=== PATIENT | male | born 1945 | race Caucasian/White ===

== ENCOUNTER 2022-06-14 12:05 | Inpatient (IN) | payer MEDICARE, OTHER ==
[2022-06-14] MEDS ORDERED: Nitroglycerin 0.4 MG Tab.SL SL PRN (14:48)
[2022-06-14] MEDS ORDERED: Albuterol HFA 18 Gm Inhaler INH PRN (14:48)
[2022-06-14] MEDS ORDERED: Hypromellose 0.3% Ophth Soln 15 ML Bottle EYEBOTH PRN (14:48)
[2022-06-14] MEDS: Warfarin 5 MG Tab PO SCH (20:31)
[2022-06-14] MEDS: Metoprolol Tartrate 50 MG Tab PO SCH (20:31)
[2022-06-15] MEDS: oxyCODONE 5 MG Tab PO PRN ×2 (02:14→22:53)
[2022-06-15] MEDS: Levothyroxine 25 MCG Tab PO SCH (06:25)
[2022-06-15 07:00] LABS: ANION GAP 12.2 mmol/L (5-15)
[2022-06-15] MEDS: Calcium Carbonate/Vitamin D3 1250 MG-5 MCG Tab PO SCH (08:28)
[2022-06-15] MEDS: Fish Oil/Omega-3 Fatty Acids 1 Gm Cap PO SCH (08:28)
[2022-06-15] MEDS: Furosemide 40 MG Tab PO SCH (08:28)
[2022-06-15] MEDS: Loratadine 10 MG Tab PO SCH (08:28)
[2022-06-15] MEDS: Cyanocobalamin (Vitamin B12) 1,000 MCG Tab PO SCH (08:28)
[2022-06-15] MEDS: Psyllium 0.52 GM Cap PO SCH (08:29)
[2022-06-15] MEDS: Cholecalciferol (Vitamin D3) 5,000 UNIT Tab PO SCH (08:29)
[2022-06-15] MEDS: Multivitamins with Iron/Calcium/Folic Acid/Minerals Tab PO SCH (08:29)
[2022-06-15] MEDS: atorvaSTATin 40 MG Tab PO SCH (08:29)
[2022-06-15] MEDS: Finasteride 5 MG Tab PO SCH (08:30)
[2022-06-15] MEDS: Aspirin 81 MG Tab.EC PO SCH (08:30)
[2022-06-15] MEDS: Tamsulosin 0.4 MG Cap.ER PO SCH (08:30)
[2022-06-15] MEDS: Metoprolol Tartrate 50 MG Tab PO SCH ×2 (08:31→20:30)
[2022-06-15] MEDS: Docusate Sodium 100 MG Cap PO SCH (08:31)
[2022-06-15] MEDS: Enoxaparin 40 MG/0.4 ML Syringe SUBCUT SCH ×2 (08:42→12:00)
[2022-06-15] MEDS ORDERED: Omeprazole 20 MG Cap.CR PO SCH (09:00)
[2022-06-15] MEDS ORDERED: 50% Dextrose in Water 50 ML Syringe IVPUSH PRN (12:02)
[2022-06-15] MEDS ORDERED: Glucagon,Human Recombinant 1 MG Vial IM PRN (12:02)
[2022-06-15] MEDS: Insulin Glarg,Human.Rec.Analog 100 Unit/ML SUBCUT SCH (12:41)
[2022-06-15] MEDS: Warfarin 5 MG Tab PO SCH (20:30)
[2022-06-15] MEDS: Acetaminophen 325 MG Tab PO PRN (20:30)
[2022-06-16] MEDS: oxyCODONE 5 MG Tab PO PRN ×2 (03:39→23:38)
[2022-06-16] MEDS: Omeprazole 20 MG Cap.CR PO SCH (06:24)
[2022-06-16] MEDS: Levothyroxine 25 MCG Tab PO SCH (06:24)
[2022-06-16] MEDS: Enoxaparin 40 MG/0.4 ML Syringe SUBCUT SCH (08:07)
[2022-06-16] MEDS: Acetaminophen 325 MG Tab PO PRN ×2 (08:08→12:53)
[2022-06-16] MEDS: Docusate Sodium 100 MG Cap PO SCH (08:09)
[2022-06-16] MEDS: Furosemide 40 MG Tab PO SCH (08:09)
[2022-06-16] MEDS: Fish Oil/Omega-3 Fatty Acids 1 Gm Cap PO SCH (08:09)
[2022-06-16] MEDS: Psyllium 0.52 GM Cap PO SCH (08:09)
[2022-06-16] MEDS: Cyanocobalamin (Vitamin B12) 1,000 MCG Tab PO SCH (08:10)
[2022-06-16] MEDS: Cholecalciferol (Vitamin D3) 5,000 UNIT Tab PO SCH (08:10)
[2022-06-16] MEDS: Loratadine 10 MG Tab PO SCH (08:11)
[2022-06-16] MEDS: Metoprolol Tartrate 50 MG Tab PO SCH ×2 (08:12→21:13)
[2022-06-16] MEDS: Tamsulosin 0.4 MG Cap.ER PO SCH (08:13)
[2022-06-16] MEDS: atorvaSTATin 40 MG Tab PO SCH (08:13)
[2022-06-16] MEDS: Finasteride 5 MG Tab PO SCH (08:13)
[2022-06-16] MEDS: Multivitamins with Iron/Calcium/Folic Acid/Minerals Tab PO SCH (08:13)
[2022-06-16] MEDS: Calcium Carbonate/Vitamin D3 1250 MG-5 MCG Tab PO SCH (08:13)
[2022-06-16] MEDS: Aspirin 81 MG Tab.EC PO SCH (08:14)
[2022-06-16] MEDS: Insulin Glarg,Human.Rec.Analog 100 Unit/ML SUBCUT SCH (08:17)
[2022-06-16] MEDS: Warfarin 5 MG Tab PO SCH (21:12)
[2022-06-17] MEDS: Levothyroxine 25 MCG Tab PO SCH (06:15)
[2022-06-17] MEDS: Omeprazole 20 MG Cap.CR PO SCH (06:15)
[2022-06-17] MEDS: Acetaminophen 325 MG Tab PO PRN (06:15)
[2022-06-17] MEDS: Enoxaparin 40 MG/0.4 ML Syringe SUBCUT SCH (09:27)
[2022-06-17] MEDS: Aspirin 81 MG Tab.EC PO SCH (09:28)
[2022-06-17] MEDS: Fish Oil/Omega-3 Fatty Acids 1 Gm Cap PO SCH (09:28)
[2022-06-17] MEDS: Tamsulosin 0.4 MG Cap.ER PO SCH (09:28)
[2022-06-17] MEDS: Cholecalciferol (Vitamin D3) 5,000 UNIT Tab PO SCH (09:29)
[2022-06-17] MEDS: Docusate Sodium 100 MG Cap PO SCH (09:29)
[2022-06-17] MEDS: Loratadine 10 MG Tab PO SCH (09:29)
[2022-06-17] MEDS: Furosemide 40 MG Tab PO SCH (09:30)
[2022-06-17] MEDS: Psyllium 0.52 GM Cap PO SCH (09:30)
[2022-06-17] MEDS: Finasteride 5 MG Tab PO SCH (09:30)
[2022-06-17] MEDS: Metoprolol Tartrate 50 MG Tab PO SCH ×2 (09:31→20:12)
[2022-06-17] MEDS: Calcium Carbonate/Vitamin D3 1250 MG-5 MCG Tab PO SCH (09:31)
[2022-06-17] MEDS: Multivitamins with Iron/Calcium/Folic Acid/Minerals Tab PO SCH (09:31)
[2022-06-17] MEDS: Cyanocobalamin (Vitamin B12) 1,000 MCG Tab PO SCH (09:32)
[2022-06-17] MEDS: atorvaSTATin 40 MG Tab PO SCH (09:32)
[2022-06-17] MEDS: Insulin Glarg,Human.Rec.Analog 100 Unit/ML SUBCUT SCH (09:34)
[2022-06-17] MEDS: Warfarin 5 MG Tab PO SCH (20:13)
[2022-06-17] MEDS: oxyCODONE 5 MG Tab PO PRN (20:13)
[2022-06-18] MEDS: Acetaminophen 325 MG Tab PO PRN ×2 (03:55→23:37)
[2022-06-18] MEDS: Levothyroxine 25 MCG Tab PO SCH (06:17)
[2022-06-18] MEDS: Omeprazole 20 MG Cap.CR PO SCH (06:17)
[2022-06-18] MEDS: Calcium Carbonate/Vitamin D3 1250 MG-5 MCG Tab PO SCH (10:12)
[2022-06-18] MEDS: Cyanocobalamin (Vitamin B12) 1,000 MCG Tab PO SCH (10:12)
[2022-06-18] MEDS: Tamsulosin 0.4 MG Cap.ER PO SCH (10:12)
[2022-06-18] MEDS: Psyllium 0.52 GM Cap PO SCH (10:12)
[2022-06-18] MEDS: Loratadine 10 MG Tab PO SCH (10:12)
[2022-06-18] MEDS: Docusate Sodium 100 MG Cap PO SCH (10:12)
[2022-06-18] MEDS: Cholecalciferol (Vitamin D3) 5,000 UNIT Tab PO SCH (10:12)
[2022-06-18] MEDS: Multivitamins with Iron/Calcium/Folic Acid/Minerals Tab PO SCH (10:12)
[2022-06-18] MEDS: Fish Oil/Omega-3 Fatty Acids 1 Gm Cap PO SCH (10:12)
[2022-06-18] MEDS: Finasteride 5 MG Tab PO SCH (10:12)
[2022-06-18] MEDS: Aspirin 81 MG Tab.EC PO SCH (10:13)
[2022-06-18] MEDS: atorvaSTATin 40 MG Tab PO SCH (10:13)
[2022-06-18] MEDS: Furosemide 40 MG Tab PO SCH (10:13)
[2022-06-18] MEDS: Metoprolol Tartrate 50 MG Tab PO SCH ×2 (10:16→21:20)
[2022-06-18] MEDS: Insulin Glarg,Human.Rec.Analog 100 Unit/ML SUBCUT SCH (10:17)
[2022-06-18] MEDS: Enoxaparin 40 MG/0.4 ML Syringe SUBCUT SCH (10:19)
[2022-06-18] MEDS: Warfarin 5 MG Tab PO SCH (21:20)
[2022-06-19] MEDS: oxyCODONE 5 MG Tab PO PRN (02:41)
[2022-06-19] MEDS: Omeprazole 20 MG Cap.CR PO SCH (06:16)
[2022-06-19] MEDS: Levothyroxine 25 MCG Tab PO SCH (06:16)
[2022-06-19] MEDS: Enoxaparin 40 MG/0.4 ML Syringe SUBCUT SCH (10:00)
[2022-06-19] MEDS: Furosemide 40 MG Tab PO SCH (10:01)
[2022-06-19] MEDS: Cyanocobalamin (Vitamin B12) 1,000 MCG Tab PO SCH (10:01)
[2022-06-19] MEDS: atorvaSTATin 40 MG Tab PO SCH (10:01)
[2022-06-19] MEDS: Fish Oil/Omega-3 Fatty Acids 1 Gm Cap PO SCH (10:02)
[2022-06-19] MEDS: Psyllium 0.52 GM Cap PO SCH (10:03)
[2022-06-19] MEDS: Finasteride 5 MG Tab PO SCH (10:04)
[2022-06-19] MEDS: Docusate Sodium 100 MG Cap PO SCH (10:04)
[2022-06-19] MEDS: Tamsulosin 0.4 MG Cap.ER PO SCH (10:04)
[2022-06-19] MEDS: Loratadine 10 MG Tab PO SCH (10:04)
[2022-06-19] MEDS: Cholecalciferol (Vitamin D3) 5,000 UNIT Tab PO SCH (10:05)
[2022-06-19] MEDS: Calcium Carbonate/Vitamin D3 1250 MG-5 MCG Tab PO SCH (10:05)
[2022-06-19] MEDS: Multivitamins with Iron/Calcium/Folic Acid/Minerals Tab PO SCH (10:05)
[2022-06-19] MEDS: Metoprolol Tartrate 50 MG Tab PO SCH ×2 (10:05→21:00)
[2022-06-19] MEDS: Aspirin 81 MG Tab.EC PO SCH (10:06)
[2022-06-19] MEDS: Insulin Glarg,Human.Rec.Analog 100 Unit/ML SUBCUT SCH (10:51)
[2022-06-19] MEDS: glipiZIDE 5 MG Tab PO SCH (12:14)
[2022-06-19] MEDS: Warfarin 5 MG Tab PO SCH (21:00)
[2022-06-19] MEDS: Acetaminophen 325 MG Tab PO PRN (21:10)
[2022-06-20] MEDS: Acetaminophen 325 MG Tab PO PRN (03:32)
[2022-06-20] MEDS: Omeprazole 20 MG Cap.CR PO SCH (06:22)
[2022-06-20] MEDS: Levothyroxine 25 MCG Tab PO SCH (06:22)
[2022-06-20] MEDS: Tamsulosin 0.4 MG Cap.ER PO SCH (09:10)
[2022-06-20] MEDS: Fish Oil/Omega-3 Fatty Acids 1 Gm Cap PO SCH (09:11)
[2022-06-20] MEDS: Metoprolol Tartrate 50 MG Tab PO SCH ×2 (09:11→20:09)
[2022-06-20] MEDS: Docusate Sodium 100 MG Cap PO SCH (09:11)
[2022-06-20] MEDS: Multivitamins with Iron/Calcium/Folic Acid/Minerals Tab PO SCH (09:11)
[2022-06-20] MEDS: Psyllium 0.52 GM Cap PO SCH (09:11)
[2022-06-20] MEDS: Cholecalciferol (Vitamin D3) 5,000 UNIT Tab PO SCH (09:11)
[2022-06-20] MEDS: Cyanocobalamin (Vitamin B12) 1,000 MCG Tab PO SCH (09:11)
[2022-06-20] MEDS: Calcium Carbonate/Vitamin D3 1250 MG-5 MCG Tab PO SCH (09:12)
[2022-06-20] MEDS: Loratadine 10 MG Tab PO SCH (09:12)
[2022-06-20] MEDS: Aspirin 81 MG Tab.EC PO SCH (09:12)
[2022-06-20] MEDS: atorvaSTATin 40 MG Tab PO SCH (09:12)
[2022-06-20] MEDS: Enoxaparin 40 MG/0.4 ML Syringe SUBCUT SCH (09:12)
[2022-06-20] MEDS: Finasteride 5 MG Tab PO SCH (09:12)
[2022-06-20] MEDS: Furosemide 40 MG Tab PO SCH (09:12)
[2022-06-20] MEDS: Insulin Glarg,Human.Rec.Analog 100 Unit/ML SUBCUT SCH (09:13)
[2022-06-20] MEDS: glipiZIDE 5 MG Tab PO SCH (09:21)
[2022-06-20] MEDS: Terbinafine 1% Crm 30 GM Tube TOP SCH ×2 (09:22→22:15)
[2022-06-20] MEDS: Warfarin 5 MG Tab PO SCH (20:08)
[2022-06-20] MEDS: Melatonin 3 MG Tab PO SCH (22:15)
[2022-06-21] MEDS: Acetaminophen 325 MG Tab PO PRN ×3 (02:14→22:57)
[2022-06-21] MEDS: Omeprazole 20 MG Cap.CR PO SCH (06:56)
[2022-06-21] MEDS: Levothyroxine 25 MCG Tab PO SCH (06:57)
[2022-06-21] MEDS: Furosemide 40 MG Tab PO SCH (09:05)
[2022-06-21] MEDS: Finasteride 5 MG Tab PO SCH (09:05)
[2022-06-21] MEDS: Psyllium 0.52 GM Cap PO SCH (09:05)
[2022-06-21] MEDS: Enoxaparin 40 MG/0.4 ML Syringe SUBCUT SCH (09:05)
[2022-06-21] MEDS: Tamsulosin 0.4 MG Cap.ER PO SCH (09:05)
[2022-06-21] MEDS: atorvaSTATin 40 MG Tab PO SCH (09:06)
[2022-06-21] MEDS: glipiZIDE 5 MG Tab PO SCH ×2 (09:06→18:05)
[2022-06-21] MEDS: Fish Oil/Omega-3 Fatty Acids 1 Gm Cap PO SCH (09:06)
[2022-06-21] MEDS: Calcium Carbonate/Vitamin D3 1250 MG-5 MCG Tab PO SCH (09:07)
[2022-06-21] MEDS: Aspirin 81 MG Tab.EC PO SCH (09:07)
[2022-06-21] MEDS: Cholecalciferol (Vitamin D3) 5,000 UNIT Tab PO SCH (09:07)
[2022-06-21] MEDS: Cyanocobalamin (Vitamin B12) 1,000 MCG Tab PO SCH (09:07)
[2022-06-21] MEDS: Insulin Glarg,Human.Rec.Analog 100 Unit/ML SUBCUT SCH (09:08)
[2022-06-21] MEDS: Multivitamins with Iron/Calcium/Folic Acid/Minerals Tab PO SCH (09:08)
[2022-06-21] MEDS: Lisinopril 5 MG Tab PO SCH (09:08)
[2022-06-21] MEDS: Docusate Sodium 100 MG Cap PO SCH (09:08)
[2022-06-21] MEDS: Loratadine 10 MG Tab PO SCH (09:08)
[2022-06-21] MEDS: Terbinafine 1% Crm 30 GM Tube TOP SCH ×2 (09:13→22:00)
[2022-06-21] MEDS: Metoprolol Tartrate 50 MG Tab PO SCH ×2 (09:21→21:30)
[2022-06-21] MEDS: Melatonin 3 MG Tab PO SCH (21:36)
[2022-06-21] MEDS: Warfarin 5 MG Tab PO SCH (22:00)
[2022-06-22] MEDS: Levothyroxine 25 MCG Tab PO SCH (06:01)
[2022-06-22] MEDS: Omeprazole 20 MG Cap.CR PO SCH (06:01)
[2022-06-22] MEDS: Calcium Carbonate/Vitamin D3 1250 MG-5 MCG Tab PO SCH (08:07)
[2022-06-22] MEDS: Multivitamins with Iron/Calcium/Folic Acid/Minerals Tab PO SCH (08:08)
[2022-06-22] MEDS: Psyllium 0.52 GM Cap PO SCH (08:08)
[2022-06-22] MEDS: Tamsulosin 0.4 MG Cap.ER PO SCH (08:08)
[2022-06-22] MEDS: Fish Oil/Omega-3 Fatty Acids 1 Gm Cap PO SCH (08:08)
[2022-06-22] MEDS: Lisinopril 5 MG Tab PO SCH (08:09)
[2022-06-22] MEDS: glipiZIDE 5 MG Tab PO SCH ×2 (08:09→18:16)
[2022-06-22] MEDS: atorvaSTATin 40 MG Tab PO SCH (08:09)
[2022-06-22] MEDS: Finasteride 5 MG Tab PO SCH (08:10)
[2022-06-22] MEDS: Aspirin 81 MG Tab.EC PO SCH (08:10)
[2022-06-22] MEDS: Loratadine 10 MG Tab PO SCH (08:11)
[2022-06-22] MEDS: Docusate Sodium 100 MG Cap PO SCH (08:11)
[2022-06-22] MEDS: Furosemide 40 MG Tab PO SCH (08:11)
[2022-06-22] MEDS: Metoprolol Tartrate 50 MG Tab PO SCH ×2 (08:11→20:58)
[2022-06-22] MEDS: Cyanocobalamin (Vitamin B12) 1,000 MCG Tab PO SCH (08:11)
[2022-06-22] MEDS: Cholecalciferol (Vitamin D3) 5,000 UNIT Tab PO SCH (08:11)
[2022-06-22] MEDS: Terbinafine 1% Crm 30 GM Tube TOP SCH ×2 (08:12→21:02)
[2022-06-22] MEDS: Enoxaparin 40 MG/0.4 ML Syringe SUBCUT SCH (08:12)
[2022-06-22] MEDS: Insulin Glarg,Human.Rec.Analog 100 Unit/ML SUBCUT SCH (08:13)
[2022-06-22] MEDS: Warfarin 5 MG Tab PO SCH (20:57)
[2022-06-22] MEDS: Melatonin 3 MG Tab PO SCH (20:57)
[2022-06-23] MEDS: Acetaminophen 325 MG Tab PO PRN (00:51)
[2022-06-23] MEDS: Omeprazole 20 MG Cap.CR PO SCH (06:31)
[2022-06-23] MEDS: Levothyroxine 25 MCG Tab PO SCH (06:31)
[2022-06-23] MEDS: Multivitamins with Iron/Calcium/Folic Acid/Minerals Tab PO SCH (08:41)
[2022-06-23] MEDS: Aspirin 81 MG Tab.EC PO SCH (08:42)
[2022-06-23] MEDS: Psyllium 0.52 GM Cap PO SCH (08:42)
[2022-06-23] MEDS: Cyanocobalamin (Vitamin B12) 1,000 MCG Tab PO SCH (08:42)
[2022-06-23] MEDS: Finasteride 5 MG Tab PO SCH (08:42)
[2022-06-23] MEDS: Metoprolol Tartrate 50 MG Tab PO SCH ×2 (08:43→20:45)
[2022-06-23] MEDS: Loratadine 10 MG Tab PO SCH (08:43)
[2022-06-23] MEDS: Tamsulosin 0.4 MG Cap.ER PO SCH (08:45)
[2022-06-23] MEDS: Lisinopril 5 MG Tab PO SCH (08:46)
[2022-06-23] MEDS: Fish Oil/Omega-3 Fatty Acids 1 Gm Cap PO SCH (08:46)
[2022-06-23] MEDS: glipiZIDE 5 MG Tab PO SCH ×2 (08:47→17:31)
[2022-06-23] MEDS: atorvaSTATin 40 MG Tab PO SCH (08:47)
[2022-06-23] MEDS: Docusate Sodium 100 MG Cap PO SCH (08:47)
[2022-06-23] MEDS: Insulin Glarg,Human.Rec.Analog 100 Unit/ML SUBCUT SCH (08:48)
[2022-06-23] MEDS: Furosemide 40 MG Tab PO SCH (08:48)
[2022-06-23] MEDS: Cholecalciferol (Vitamin D3) 5,000 UNIT Tab PO SCH (08:48)
[2022-06-23] MEDS: Terbinafine 1% Crm 30 GM Tube TOP SCH ×2 (08:49→20:53)
[2022-06-23] MEDS: Calcium Carbonate/Vitamin D3 1250 MG-5 MCG Tab PO SCH (08:55)
[2022-06-23] MEDS: Melatonin 3 MG Tab PO SCH (20:45)
[2022-06-23] MEDS: Warfarin 2.5 MG Tab PO SCH (20:49)
[2022-06-24] MEDS: Omeprazole 20 MG Cap.CR PO SCH (06:35)
[2022-06-24] MEDS: Levothyroxine 25 MCG Tab PO SCH (06:35)
[2022-06-24] MEDS: Calcium Carbonate/Vitamin D3 1250 MG-5 MCG Tab PO SCH (08:50)
[2022-06-24] MEDS: Cyanocobalamin (Vitamin B12) 1,000 MCG Tab PO SCH (08:51)
[2022-06-24] MEDS: Aspirin 81 MG Tab.EC PO SCH (08:52)
[2022-06-24] MEDS: Multivitamins with Iron/Calcium/Folic Acid/Minerals Tab PO SCH (08:52)
[2022-06-24] MEDS: Psyllium 0.52 GM Cap PO SCH (08:52)
[2022-06-24] MEDS: Lisinopril 5 MG Tab PO SCH (08:53)
[2022-06-24] MEDS: glipiZIDE 5 MG Tab PO SCH ×2 (08:53→18:22)
[2022-06-24] MEDS: Tamsulosin 0.4 MG Cap.ER PO SCH (08:53)
[2022-06-24] MEDS: Fish Oil/Omega-3 Fatty Acids 1 Gm Cap PO SCH (08:53)
[2022-06-24] MEDS: Metoprolol Tartrate 50 MG Tab PO SCH ×2 (08:54→21:19)
[2022-06-24] MEDS: Loratadine 10 MG Tab PO SCH (08:54)
[2022-06-24] MEDS: Finasteride 5 MG Tab PO SCH (08:54)
[2022-06-24] MEDS: Docusate Sodium 100 MG Cap PO SCH (08:54)
[2022-06-24] MEDS: Furosemide 40 MG Tab PO SCH (08:55)
[2022-06-24] MEDS: Cholecalciferol (Vitamin D3) 5,000 UNIT Tab PO SCH (08:55)
[2022-06-24] MEDS: atorvaSTATin 40 MG Tab PO SCH (08:55)
[2022-06-24] MEDS: Insulin Glarg,Human.Rec.Analog 100 Unit/ML SUBCUT SCH (08:56)
[2022-06-24] MEDS: Terbinafine 1% Crm 30 GM Tube TOP SCH ×2 (08:57→21:20)
[2022-06-24] MEDS: Warfarin 2.5 MG Tab PO SCH (21:15)
[2022-06-24] MEDS: Melatonin 3 MG Tab PO SCH (21:15)
[2022-06-25] MEDS ORDERED: Acetaminophen 325 MG Tab ONE (08:27)
[2022-06-25] MEDS ORDERED: Warfarin 5 MG Tab ONE (08:27)
[2022-06-25] MEDS ORDERED: Cholecalciferol (Vitamin D3) 5,000 UNIT Tab ONE (08:27)
[2022-06-25] MEDS ORDERED: Fish Oil/Omega-3 Fatty Acids 1 Gm Cap ONE (08:27)
[2022-06-25] MEDS ORDERED: Aspirin 81 MG Tab.EC ONE (08:27)
[2022-06-25] MEDS ORDERED: atorvaSTATin 40 MG Tab ONE (08:27)
[2022-06-25] MEDS ORDERED: Melatonin 3 MG Tab ONE (08:27)
[2022-06-25] MEDS ORDERED: Tamsulosin 0.4 MG Cap.ER ONE (08:27)
[2022-06-25] MEDS ORDERED: Levothyroxine 25 MCG Tab ONE (08:27)
[2022-06-25] MEDS ORDERED: Docusate Sodium 100 MG Cap ONE (08:27)
[2022-06-25] MEDS ORDERED: Metoprolol Tartrate 50 MG Tab ONE (08:27)
[2022-06-25] MEDS ORDERED: Cyanocobalamin (Vitamin B12) 1,000 MCG Tab ONE (08:27)
[2022-06-25] MEDS ORDERED: Loratadine 10 MG Tab ONE (08:27)
[2022-06-25] MEDS ORDERED: Lisinopril 10 MG Tab ONE (08:27)
[2022-06-25] MEDS ORDERED: Psyllium 0.52 GM Cap ONE (08:27)
[2022-06-25] MEDS ORDERED: glipiZIDE 5 MG Tab ONE (08:27)
[2022-06-25] MEDS ORDERED: Multivitamins with Iron/Calcium/Folic Acid/Minerals Tab ONE (08:27)
[2022-06-25] MEDS ORDERED: Finasteride 5 MG Tab ONE (08:27)
[2022-06-25] MEDS ORDERED: Omeprazole 20 MG Cap.CR ONE (08:27)
[2022-06-25] MEDS ORDERED: Calcium Carbonate/Vitamin D3 1250 MG-5 MCG Tab ONE (08:27)
[2022-06-25] MEDS ORDERED: Furosemide 40 MG Tab ONE (08:27)
[2022-06-25] MEDS ORDERED: Lisinopril 10 MG Tab PO SCH (09:00)
[2022-06-26] MEDS ORDERED: Aspirin 81 MG Tab.EC ONE (08:28)
[2022-06-26] MEDS ORDERED: Docusate Sodium 100 MG Cap ONE (08:28)
[2022-06-26] MEDS ORDERED: Loratadine 10 MG Tab ONE (08:28)
[2022-06-26] MEDS ORDERED: Fish Oil/Omega-3 Fatty Acids 1 Gm Cap ONE (08:28)
[2022-06-26] MEDS ORDERED: Lisinopril 10 MG Tab ONE (08:28)
[2022-06-26] MEDS ORDERED: Melatonin 3 MG Tab ONE (08:28)
[2022-06-26] MEDS ORDERED: atorvaSTATin 40 MG Tab ONE (08:28)
[2022-06-26] MEDS ORDERED: Multivitamins with Iron/Calcium/Folic Acid/Minerals Tab ONE (08:28)
[2022-06-26] MEDS ORDERED: Psyllium 0.52 GM Cap ONE (08:28)
[2022-06-26] MEDS ORDERED: Omeprazole 20 MG Cap.CR ONE (08:28)
[2022-06-26] MEDS ORDERED: Calcium Carbonate/Vitamin D3 1250 MG-5 MCG Tab ONE (08:28)
[2022-06-26] MEDS ORDERED: Tamsulosin 0.4 MG Cap.ER ONE (08:28)
[2022-06-26] MEDS ORDERED: Cholecalciferol (Vitamin D3) 5,000 UNIT Tab ONE (08:28)
[2022-06-26] MEDS ORDERED: Metoprolol Tartrate 50 MG Tab ONE (08:28)
[2022-06-26] MEDS ORDERED: Levothyroxine 25 MCG Tab ONE (08:28)
[2022-06-26] MEDS ORDERED: Cyanocobalamin (Vitamin B12) 1,000 MCG Tab ONE (08:28)
[2022-06-26] MEDS ORDERED: Furosemide 40 MG Tab ONE (08:28)
[2022-06-26] MEDS ORDERED: glipiZIDE 5 MG Tab ONE (08:28)
[2022-06-26] MEDS ORDERED: Finasteride 5 MG Tab ONE (08:28)
[2022-06-26] MEDS ORDERED: Warfarin 2.5 MG Tab ONE (08:28)
[2022-06-27] MEDS ORDERED: Cholecalciferol (Vitamin D3) 5,000 UNIT Tab ONE (08:23)
[2022-06-27] MEDS ORDERED: Tamsulosin 0.4 MG Cap.ER ONE (08:23)
[2022-06-27] MEDS ORDERED: glipiZIDE 5 MG Tab ONE (08:23)
[2022-06-27] MEDS ORDERED: atorvaSTATin 40 MG Tab ONE (08:23)
[2022-06-27] MEDS ORDERED: Levothyroxine 25 MCG Tab ONE (08:23)
[2022-06-27] MEDS ORDERED: Aspirin 81 MG Tab.EC ONE (08:23)
[2022-06-27] MEDS ORDERED: Melatonin 3 MG Tab ONE (08:23)
[2022-06-27] MEDS ORDERED: Calcium Carbonate/Vitamin D3 1250 MG-5 MCG Tab ONE (08:23)
[2022-06-27] MEDS ORDERED: Multivitamins with Iron/Calcium/Folic Acid/Minerals Tab ONE (08:23)
[2022-06-27] MEDS ORDERED: Docusate Sodium 100 MG Cap ONE (08:23)
[2022-06-27] MEDS ORDERED: Lisinopril 10 MG Tab ONE (08:23)
[2022-06-27] MEDS ORDERED: Furosemide 40 MG Tab ONE (08:23)
[2022-06-27] MEDS ORDERED: Loratadine 10 MG Tab ONE (08:23)
[2022-06-27] MEDS ORDERED: Omeprazole 20 MG Cap.CR ONE (08:23)
[2022-06-27] MEDS ORDERED: Fish Oil/Omega-3 Fatty Acids 1 Gm Cap ONE (08:23)
[2022-06-27] MEDS ORDERED: Finasteride 5 MG Tab ONE (08:23)
[2022-06-27] MEDS ORDERED: Cyanocobalamin (Vitamin B12) 1,000 MCG Tab ONE (08:23)
[2022-06-27] MEDS ORDERED: Metoprolol Tartrate 50 MG Tab ONE (08:23)
[2022-06-27 11:52] LABS: ANION GAP 11.3 mmol/L (5-15)
== END 2022-06-27 15:20 | disposition home health service (06) | DRG 560 ==
LOC: VM.MS 12:05 → VM.ZCENSUS 06-25 12:17
PROVIDERS: ADMIT Internal Medicine; ATTEND Internal Medicine
DX: Z47.1 Aftercare following joint replacement surgery (principal); D62 Acute posthemorrhagic anemia; Z96.641 Presence of right artificial hip joint; I48.0 Paroxysmal atrial fibrillation; E11.65 Type 2 diabetes mellitus with hyperglycemia; I35.0 Nonrheumatic aortic (valve) stenosis; J44.9 Chronic obstructive pulmonary disease, unspecified; I10 Essential (primary) hypertension; I25.10 Atherosclerotic heart disease of native coronary artery without angina pectoris; E11.51 Type 2 diabetes mellitus with diabetic peripheral angiopathy without gangrene; K21.9 Gastro-esophageal reflux disease without esophagitis; E78.5 Hyperlipidemia, unspecified; E66.9 Obesity, unspecified; E03.9 Hypothyroidism, unspecified; G47.33 Obstructive sleep apnea (adult) (pediatric); Z20.822 Contact with and (suspected) exposure to COVID-19; I71.40 Abdominal aortic aneurysm, without rupture, unspecified; N40.1 Benign prostatic hyperplasia with lower urinary tract symptoms; R33.8 Other retention of urine; Z95.1 Presence of aortocoronary bypass graft; Z79.01 Long term (current) use of anticoagulants; Z91.018 Allergy to other foods; Z79.899 Other long term (current) drug therapy; Z86.010 Personal history of colon polyps
CPT/HCPCS: 36415; 51798; 80048; 82947; 85025; 85610; 97110-GP; 97116-GP; 97161-GP; 97162-GP; 97165-GO; 97530-GP; 97535-GO; A9270-GY; J1650; J1815-GY